=== PATIENT | male | born 1960 | race Caucasian/White ===

== ENCOUNTER 2020-04-11 08:51 | Outpatient (REF) | payer OTHER, SELFPAY ==
--- NOTE | 2020-04-11 09:16 | XR_ITS ---
EXAMINATION: XR FINGER, RIGHT CLINICAL INFORMATION: Pain COMPARISON: Right wrist x-ray April 2017 TECHNIQUE: Three views of the right thumb. FINDINGS: Bone alignment is normal. No fracture or dislocation is seen. There is a small osteophyte at the IP joint of the thumb. Joint spaces are otherwise normal. Soft tissues are normal. XR/XR finger RT min 2V IMPRESSION: Mild degenerative changes at the IP joint.
[2020-04-11 10:04] LABS: Hematocrit 46.1 % (42-52); Hemoglobin 15.3 g/dl (14.0-18.0); Mean Corpuscular HGB Conc 33.2 g/dl (31.0-36.0); Mean Corpuscular Hemoglobin 28.8 pg (27.0-33.0); Mean Corpuscular Volume 86.7 fL (80-98); Mean Platelet Volume 10.3 fL (9.4-12.4); Platelet Count 236 X10*3/uL (160-400); Red Blood Count 5.32 X10*6/uL (4.60-5.80); Red Cell Distribution Width 13.6 % (11.0-16.0); White Blood Count 4.8 X10*3/uL (4.8-10.8)
[2020-04-11 10:32] LABS: Alanine Aminotransferase 24 U/L (0-40); Albumin Level 4.2 g/dL (3.5-5.0); Alkaline Phosphatase 76 U/L (39-117); Anion Gap 12 (12-20); Aspartate Amino Transferase 24 U/L (5-37); Bilirubin Total 0.9 mg/dL (0.0-1.0); Blood Urea Nitrogen 12 mg/dL (9-16); Calcium 8.9 mg/dL (8.4-10.2); Carbon Dioxide 26 mmol/L (22-29); Chloride 104 mmol/L (96-108); Cholesterol 133 mg/dL; Estimated Glomerular Filt Rate > 60; Glucose Fasting 82 mg/dL (60-99); HDL Cholesterol 52 mg/dL; LDL Cholesterol Calculated 70 mg/dl; Potassium 4.8 mmol/l (3.3-5.1); Sodium 137 mmol/L (135-145); Total Protein 6.9 g/dL (6.5-8.0); Triglycerides 58 mg/dL
[2020-04-11 10:39] LABS: Glucose Urine UA NEG (NEG); Leukocyte Esterase Urine NEG (NEG); Nitrite Urine NEG (NEG); Specific Gravity - Urine 1.015 (1.005-1.025); Urine Blood NEG (NEG); Urine Ketones NEG (NEG); Urine Protein NEG (NEG-TRACE)
[2020-04-11 10:44] LABS: Appearance Urine CLEAR; Color Urine YELLOW
[2020-04-11 11:11] LABS: Erythrocyte Sedimentation Rate 3 MM/HR (0-15)
== END 2020-04-11 08:52 | disposition home or self-care (01) ==
LOC: HO.LAB 08:51
PROVIDERS: PCP Internal Medicine; Visit Provider Internal Medicine
DX: E78.5 Hyperlipidemia, unspecified (principal); M79.644 Pain in right finger(s); G25.81 Restless legs syndrome
CPT/HCPCS: 36415; 73140; 80053; 80061; 81003; 84443; 85027; 85652

== ENCOUNTER 2020-04-24 08:08 | Outpatient (REF) | payer OTHER, SELFPAY ==
[2020-04-24 08:27] LABS: COVID-19 Test Negative (Negative); IDNOW Serial# 55D5AD1C
== END 2020-04-24 08:09 | disposition home or self-care (01) ==
LOC: HO.EMPCOV 08:08
PROVIDERS: Visit Provider Internal Medicine
DX: Z20.828 Contact with and (suspected) exposure to other viral communicable diseases (principal)
CPT/HCPCS: 87635; C9803

== ENCOUNTER 2020-04-30 15:01 | Outpatient (REF) | payer OTHER, SELFPAY ==
[2020-04-30 15:18] LABS: COVID-19 Test Negative (Negative)
== END 2020-04-30 15:02 | disposition home or self-care (01) ==
LOC: HO.LAB 15:01
PROVIDERS: Visit Provider Internal Medicine
DX: Z20.828 Contact with and (suspected) exposure to other viral communicable diseases (principal)
CPT/HCPCS: 87635; C9803

== ENCOUNTER 2020-07-14 11:28 | Outpatient (REF) | payer OTHER, SELFPAY | END 2020-07-14 11:29 | disposition home or self-care (01) | LOC: HO.EMPCOV 11:28 | PROVIDERS: Visit Provider Internal Medicine | DX: Z20.822 Contact with and (suspected) exposure to COVID-19 (principal) | CPT/HCPCS: 36415; C9803; U0003; U0005 ==

== ENCOUNTER 2020-07-16 08:01 | Outpatient (REF) | payer OTHER, SELFPAY ==
[2020-07-16 08:20] LABS: COVID-19 Test Negative (Negative)
== END 2020-07-16 08:02 | disposition home or self-care (01) ==
LOC: HO.EMPCOV 08:01
PROVIDERS: Visit Provider Internal Medicine
DX: Z20.822 Contact with and (suspected) exposure to COVID-19 (principal)
CPT/HCPCS: 36415; 87635; C9803

== ENCOUNTER 2020-08-15 08:58 | Outpatient (REF) | payer OTHER, SELFPAY | END 2020-08-15 08:59 | disposition home or self-care (01) | LOC: HO.LAB 08:58 | PROVIDERS: PCP Internal Medicine; Visit Provider Internal Medicine | DX: Z13.89 Encounter for screening for other disorder (principal) ==

== ENCOUNTER 2020-08-15 09:03 | Day surgery (SDC) | payer OTHER, SELFPAY ==
[2020-08-11 13:59] VITALS: BMI 25.9
--- NOTE | 2020-08-14 10:29 | P.CONAN_ITS ---
Documented by User: Chantelle Stoddard 08/14/20 10:29 HPI - Anesthesia Eval Consult details Narrative: 59yo M for Colonoscopy [facility] Past Medical History Medical History (Updated 08/11/20 @ 14:01 by Candace Soliz) Elevated cholesterol HTN (hypertension) Hx of migraine headaches Surgical History Surgical History (Updated 08/11/20 @ 14:01 by Candace Soliz) H/O colonoscopy Hx of cholecystectomy Hx of laminectomy Social History Social History Smoking Status: Never smoker Advance Directives Information Provided: No Meds Allergies Allergy/AdvReac Type Severity Reaction Status Date / Time No Known Allergies Allergy Verified 08/11/20 14:03 [No Known Allergies*] Home Medications Medication Instructions Recorded Confirmed Last Taken Type atenolol 25 mg PO DAILY 08/11/20 08/11/20 08/15/20 07:00 History rosuvastatin 10 mg PO DAILY 08/11/20 08/11/20 Unknown History Exam Exam Date and Time: August 14, 2020 1029 Height,Weight and Vital Signs: Height 5 ft 7 in Weight 75.296 kg Assessment and Plan Assessment Anesthesia Assessment: Chart Reviewed Documented by User: Poncho Henson 08/15/20 10:10 [facility] Past Medical History Medical History (Updated 08/11/20 @ 14:01 by Candace Soliz) Elevated cholesterol HTN (hypertension) Hx of migraine headaches Surgical History Surgical History (Updated 08/11/20 @ 14:01 by Candace Soliz) H/O colonoscopy Hx of cholecystectomy Hx of laminectomy Social History Social History Smoking Status: Never smoker Advance Directives Information Provided: No Meds Allergies Allergy/AdvReac Type Severity Reaction Status Date / Time No Known Allergies Allergy Verified 08/11/20 14:03 [No Known Allergies*] Home Medications Medication Instructions Recorded Confirmed Last Taken Type atenolol 25 mg PO DAILY 08/11/20 08/11/20 08/15/20 07:00 History rosuvastatin 10 mg PO DAILY 08/11/20 08/11/20 Unknown History Exam Airway Mallampati Class: III TM Dist: >3cm Neck ROM: Full
[2020-08-15] VITALS (8 sets, daily range): BP systolic 75–112; BP diastolic 50–74; PULSE 58–72; RESP 14–18; TEMP 36.1–36.3; O2SAT 93–100
[2020-08-15 10:15] LABS: Basophils Percent Auto 0.6 % (0-2); Eosinophils Absolute Auto 0.2 X10*3/uL (0.0-0.4); Eosinophils Percent Auto 3.5 % (0-4); Hematocrit 47.2 % (42-52); Hemoglobin 15.8 g/dl (14.0-18.0); Imm Gran Abs Auto 0.01 X10*3/uL (0.00-0.03); Imm Gran Pct Auto 0.2 % (0.0-0.4); Lymphocytes Absolute Auto 1.8 X10*3/uL (1.2-4.9); MANUAL DIFF FLAG NO; Mean Corpuscular HGB Conc 33.5 g/dl (31.0-36.0); Mean Corpuscular Hemoglobin 29.6 pg (27.0-33.0); Mean Corpuscular Volume 88.4 fL (80-98); Mean Platelet Volume 9.9 fL (9.4-12.4); Monocytes Absolute Auto 0.3 X10*3/uL (0.1-1.2); Monocytes Percent Auto 7.1 % (2-11); Neutrophils Absolute Auto 2.4 X10*3/uL (2.0-8.3); Neutrophils Percent Auto 50.6 % (45-73); Platelet Count 228 X10*3/uL (160-400); Red Blood Count 5.34 X10*6/uL (4.60-5.80); Red Cell Distribution Width 13.5 % (11.0-16.0); White Blood Count 4.8 X10*3/uL (4.8-10.8)
[2020-08-15 10:20] LABS: Prothrombin Time 12.1 SEC (10.8-13.0)
[2020-08-15] MEDS: Lactated Ringers 1,000 ML 100 ML IVCONT (10:24)
[2020-08-15 10:47] LABS: Anion Gap 14 (12-20); Blood Urea Nitrogen 11 mg/dL (9-16); Calcium 8.8 mg/dL (8.4-10.2); Carbon Dioxide 25 mmol/L (22-29); Chloride 106 mmol/L (96-108); Cholesterol 141 mg/dL; Creatinine Clr Calc Pharmacy 70.5; Estimated Glomerular Filt Rate > 60; Glucose Fasting 84 mg/dL (60-99); HDL Cholesterol 45 mg/dL; LDL Cholesterol Calculated 77 mg/dl; Sodium 140 mmol/L (135-145); Triglycerides 96 mg/dL
--- NOTE | 2020-08-15 11:44 | PM.OP ---
Brief Operative Note Date of Service: 08/15/20 Pre-op diagnosis: Screening Post-op diagnosis: other (Colon polyp) Procedure: Colonoscopy to the cecum and TI with biopsy/removal of polyp Surgeon: Kevan Mahajan Anesthesia: MAC Estimated blood loss (mL): 3.0 Pathology: other (A. Transverse colon polyp) Condition: stable Disposition: PACU
--- NOTE | 2020-08-15 12:00 | OP_ITS ---
SURGEON: Kevan Mahajan MD INDICATIONS: The patient presents for evaluation of colorectal cancer screening and personal history of tubular adenoma of the colon. Full consent has been obtained from him for this, including risks of bleeding and perforation. PREOPERATIVE DIAGNOSIS: POSTOPERATIVE DIAGNOSIS: PROCEDURE PERFORMED: Colonoscopy to the cecum and terminal ileum with biopsy and removal of polyp. ESTIMATED BLOOD LOSS: COMPLICATIONS: ANESTHESIA: Monitored anesthesia care. ASSISTANTS: SPECIMENS: PREOPERATIVE DIAGNOSES: Colorectal cancer screening and personal history of tubular adenoma of the colon. POSTOPERATIVE DIAGNOSES: Colorectal cancer screening and personal history of tubular adenoma of the colon, small colon polyp, mild sigmoid diverticulosis, and small internal hemorrhoids. DESCRIPTION OF PROCEDURE: The patient was placed in the left lateral decubitus position. The digital rectal exam revealed no abnormalities. The Olympus video pediatric colonoscope was entered into the rectum and advanced easily to the cecum. Once in the cecum, I did identify normal-appearing cecal pouch with appendiceal orifice and a normal-appearing ileocecal valve. The terminal ileum was cannulated and appeared normal. The scope was withdrawn back in the colon. The entire cecum and ileocecal valve appeared normal. The scope was slowly withdrawn assessing all mucosal surfaces carefully. Preparation was excellent. At the region of the transverse colon, was a flat approximately 4 mm polyp, which was biopsied and completely removed with cold biopsy forceps. I did not visualize any other polyps, colitis, nor angiodysplasia. There was a mild amount of sigmoid diverticulosis. In the rectum, scope was retroflexed visualizing small internal hemorrhoids, but no other pathology. The rectal mucosa appeared normal. The scope was straightened out and withdrawn from the patient. He tolerated the procedure well and was returned to the recovery area in stable condition. IMPRESSION: 1. Small colon polyp, status post biopsy and removal. 2. Diverticulosis. 3. Internal hemorrhoids. PLAN: The results of the pathology will be checked. I would recommend a repeat colonoscopy in 5 years for further screening. He will otherwise see me on a p.r.n. basis. MD MARY Ferrer/PATSY / [id number]
== END 2020-08-15 13:35 | disposition home or self-care (01) ==
PROVIDERS: Internal Medicine; Visit Provider Internal Medicine
PROC: 0DJD8ZZ Inspection of Lower Intestinal Tract, Via Natural or Artificial Opening Endoscopic (ICD-10-PCS; CPT 45378; principal; 2020-08-15 10:00)
DX: Z12.11 Encounter for screening for malignant neoplasm of colon (principal); Z86.010 Personal history of colon polyps; D12.3 Benign neoplasm of transverse colon; K57.30 Diverticulosis of large intestine without perforation or abscess without bleeding; K64.8 Other hemorrhoids; K59.4 Anal spasm; I10 Essential (primary) hypertension; Z90.49 Acquired absence of other specified parts of digestive tract; Z79.899 Other long term (current) drug therapy
CPT/HCPCS: 45380; 36415; 80048; 80061; 84153; 85025; 85610; 88305

== ENCOUNTER 2021-03-28 07:38 | Outpatient (REF) | payer OTHER, SELFPAY ==
[2021-03-28 07:46] LABS: MANUAL DIFF FLAG NO
[2021-03-28 08:10] LABS: Basophils Percent Auto 0.6 % (0-2); Eosinophils Absolute Auto 0.3 X10*3/uL (0.0-0.4); Eosinophils Percent Auto 6.1 % (0-4); Hematocrit 47.3 % (42.0-52.0); Hemoglobin 15.5 g/dl (14.0-18.0); Imm Gran Abs Auto 0.01 X10*3/uL (0.00-0.03); Imm Gran Pct Auto 0.2 % (0.0-0.4); Lymphocytes Absolute Auto 2.5 X10*3/uL (1.2-4.9); Mean Corpuscular HGB Conc 32.8 g/dl (31.0-36.0); Mean Corpuscular Hemoglobin 29.2 pg (27.0-33.0); Mean Corpuscular Volume 89.2 fL (80.0-98.0); Mean Platelet Volume 9.8 fL (9.4-12.4); Monocytes Absolute Auto 0.4 X10*3/uL (0.1-1.2); Monocytes Percent Auto 7.3 % (2-11); Neutrophils Percent Auto 38.8 % (45-73); Platelet Count 236 X10*3/uL (160-400); Red Cell Distribution Width 13.3 % (11.0-16.0); White Blood Count 5.2 X10*3/uL (4.8-10.8)
[2021-03-28 08:15] LABS: Appearance Urine CLEAR; Color Urine YELLOW; Glucose Urine UA NEG (NEG); Leukocyte Esterase Urine NEG (NEG); Nitrite Urine NEG (NEG); Urine Blood NEG (NEG); Urine Ketones NEG (NEG); Urine Protein NEG (NEG-TRACE)
[2021-03-28 08:34] LABS: Alanine Aminotransferase 23 U/L (0-40); Albumin Level 4.2 g/dL (3.5-5.0); Alkaline Phosphatase 75 U/L (39-117); Anion Gap 8 (12-20); Aspartate Amino Transferase 22 U/L (5-37); Bilirubin Total 0.6 mg/dL (0.0-1.0); Blood Urea Nitrogen 13 mg/dL (9-16); Calcium 9.2 mg/dL (8.4-10.2); Carbon Dioxide 31 mmol/L (22-29); Chloride 104 mmol/L (96-108); Cholesterol 150 mg/dL; Estimated Glomerular Filt Rate > 60; Glucose Random 96 mg/dL (60-115); HDL Cholesterol 45 mg/dL; LDL Cholesterol Calculated 89 mg/dl; Potassium 4.6 mmol/L (3.3-5.1); Sodium 138 mmol/L (135-145); Total Protein 6.8 g/dL (6.5-8.0); Triglycerides 83 mg/dL
[2021-03-28 08:59] LABS: Prostate Specific Antigen 0.52 ng/mL (<0.05-4.0)
== END 2021-03-28 07:39 | disposition home or self-care (01) ==
LOC: HO.LAB 07:38
PROVIDERS: PCP Internal Medicine; Visit Provider Internal Medicine
DX: Z12.5 Encounter for screening for malignant neoplasm of prostate (principal); I25.10 Atherosclerotic heart disease of native coronary artery without angina pectoris
CPT/HCPCS: 36415; 80053; 80061; 81003; 84153; 85025

== ENCOUNTER 2021-09-25 07:55 | Outpatient (REF) | payer OTHER, SELFPAY ==
[2021-09-25 11:10] LABS: MANUAL DIFF FLAG NO
[2021-09-25 11:23] LABS: Appearance Urine CLEAR; Basophils Percent Auto 0.6 % (0-2); Color Urine YELLOW; Eosinophils Absolute Auto 0.2 X10*3/uL (0.0-0.4); Glucose Urine UA NEG (NEG); Hematocrit 44.5 % (42.0-52.0); Hemoglobin 14.5 g/dl (14.0-18.0); Imm Gran Abs Auto 0.01 X10*3/uL (0.00-0.03); Imm Gran Pct Auto 0.2 % (0.0-0.4); Leukocyte Esterase Urine NEG (NEG); Lymphocytes Absolute Auto 2.5 X10*3/uL (1.2-4.9); Lymphocytes Percent Auto 47.3 % (20-40); Mean Corpuscular HGB Conc 32.6 g/dl (31.0-36.0); Mean Corpuscular Hemoglobin 28.6 pg (27.0-33.0); Mean Corpuscular Volume 87.8 fL (80.0-98.0); Mean Platelet Volume 10.6 fL (9.4-12.4); Monocytes Absolute Auto 0.4 X10*3/uL (0.1-1.2); Monocytes Percent Auto 7.3 % (2-11); Neutrophils Absolute Auto 2.1 x10*3/uL (2.0-8.3); Neutrophils Percent Auto 40.6 % (45-73); Nitrite Urine NEG (NEG); Platelet Count 230 X10*3/uL (160-400); Red Blood Count 5.07 X10*6/uL (4.60-5.80); Red Cell Distribution Width 13.9 % (11.0-16.0); Specific Gravity - Urine 1.025 (1.005-1.025); Urine Blood NEG (NEG); Urine Ketones 5 MG/DL (NEG); Urine Protein NEG (NEG-TRACE); White Blood Count 5.2 X10*3/uL (4.8-10.8)
[2021-09-25 11:46] LABS: Alanine Aminotransferase 18 U/L (0-40); Albumin Level 4.1 g/dL (3.5-5.0); Alkaline Phosphatase 67 U/L (39-117); Anion Gap 12 (12-20); Aspartate Amino Transferase 21 U/L (5-37); Bilirubin Total 0.8 mg/dL (0.0-1.0); Blood Urea Nitrogen 13 mg/dL (9-16); Calcium 9.3 mg/dL (8.4-10.2); Carbon Dioxide 27 mmol/L (22-29); Chloride 104 mmol/L (96-108); Cholesterol 151 mg/dL; Estimated Glomerular Filt Rate > 60; Glucose Random 92 mg/dL (60-115); HDL Cholesterol 46 mg/dL; LDL Cholesterol Calculated 90 mg/dl; Potassium 5.2 mmol/L (3.3-5.1); Sodium 138 mmol/L (135-145); Total Protein 6.7 g/dL (6.5-8.0); Triglycerides 79 mg/dL
[2021-09-25 12:27] LABS: Erythrocyte Sedimentation Rate 4 MM/HR (0-15)
== END 2021-09-25 07:56 | disposition home or self-care (01) ==
LOC: HO.HMGCLDS 07:55
PROVIDERS: Visit Provider Internal Medicine
DX: G43.709 Chronic migraine without aura, not intractable, without status migrainosus (principal)
CPT/HCPCS: 36415; 80053; 80061; 81003; 85025; 85652

== ENCOUNTER 2021-10-07 14:16 | Outpatient (REF) | payer OTHER, SELFPAY ==
--- NOTE | ~2021-10-07 | XR_ITS ---
EXAMINATION: XR KNEE AP STANDING CLINICAL INFORMATION: Primary osteoarthritis of left knee COMPARISON: None TECHNIQUE: AP bilateral standing view of the knees was obtained. 2 views each knee FINDINGS: Bilateral AP knee standing: The medial and lateral compartment joint space is maintained normal bilaterally. No bony erosive changes seen. No soft tissue swelling. Left knee: There is mild suprapatellar joint effusion. The patellofemoral compartment joint space is maintained normal. There is minimal superior patellar spurring. No bony erosive changes. Right knee: There is minimal superior patellar spurring. There is mild suprapatellar joint effusion. No visible acute fracture, dislocation or subluxation seen. Patellofemoral joint space is normal. XR/XR knee standing BI IMPRESSION: Bilateral superior patellar spurring with mild suprapatellar joint effusion. No visible acute fracture or dislocation seen.
== END 2021-10-07 14:17 | disposition home or self-care (01) ==
LOC: HO.XRAY 14:16
PROVIDERS: PCP Internal Medicine; Visit Provider Internal Medicine
DX: M17.12 Unilateral primary osteoarthritis, left knee (principal)
CPT/HCPCS: 73565

== ENCOUNTER 2021-10-16 19:28 | Outpatient (REF) | payer OTHER, SELFPAY ==
--- NOTE | ~2021-10-16 | MR_ITS ---
EXAMINATION: MR PELVIS WITHOUT AND WITH CONTRAST CLINICAL INFORMATION: Right groin pain. COMPARISON: Pelvic MRI dated 08/16/2006. TECHNIQUE: Multisequence MR imaging of the pelvis was obtained before and after the IV administration of 7 mL Gadavist contrast on a high-field strength scanner. FINDINGS: BONE: Unremarkable. No stress reaction, fracture, or avascular necrosis. No marrow enhancement or evidence of acute osseous injury. No concerning lytic or blastic osseous lesion. MUSCLES/TENDONS: Mild bilateral gluteus minimus tendinosis. No measurable tendon tear. No enhancement or evidence of acute muscle injury. INTRAPELVIC STRUCTURES: Unremarkable. SOFT TISSUES: No abnormal soft tissue mass, fluid collection, or enhancement. MR/MR pelvis wo/w con IMPRESSION: 1. Mild bilateral gluteus minimus tendinosis. 2. Otherwise unremarkable examination.
== END 2021-10-16 19:29 | disposition home or self-care (01) ==
LOC: HO.MRI 19:28
PROVIDERS: Visit Provider Internal Medicine
DX: R10.2 Pelvic and perineal pain (principal)
CPT/HCPCS: 72197; A9585

== ENCOUNTER 2021-10-30 11:02 | Outpatient (REF) | payer OTHER, SELFPAY ==
--- NOTE | ~2021-10-30 | XR_ITS ---
EXAMINATION: XR FOOT, RIGHT CLINICAL INFORMATION: Pain. COMPARISON: Right foot 10/24/2019 TECHNIQUE: AP, lateral, and oblique views of the right foot. FINDINGS: The bones and soft tissues are normal. No fracture. Alignment is anatomic. Joint spaces are maintained. There is small calcaneal heel spur. XR/XR foot RT min 3V IMPRESSION: Small calcaneal heel spur. Otherwise unremarkable right foot. No major change from 10/24/2019
== END 2021-10-30 11:03 | disposition home or self-care (01) ==
LOC: HO.XRAY 11:02
PROVIDERS: Visit Provider Internal Medicine
DX: M79.671 Pain in right foot (principal)
CPT/HCPCS: 73630

== ENCOUNTER 2022-07-16 10:00 | Outpatient (RCR) | payer OTHER, SELFPAY | END 2022-09-30 13:20 | disposition home or self-care (01) | LOC: HO.PT 10:00 | PROVIDERS: PCP Internal Medicine; Visit Provider Internal Medicine | DX: M22.2X1 Patellofemoral disorders, right knee (principal); M22.2X2 Patellofemoral disorders, left knee | CPT/HCPCS: 97110; 97161 ==

== ENCOUNTER 2023-01-21 07:59 | Outpatient (REF) | payer OTHER, SELFPAY ==
[2023-01-21 11:27] LABS: MANUAL DIFF FLAG NO
[2023-01-21 11:41] LABS: Appearance Urine Clear; Color Urine Yellow; Glucose Urine UA Negative (Negative); Leukocyte Esterase Urine Negative (Negative); Nitrite Urine Negative (Negative); PH 5.5 (5.0-9.0); Urine Blood Negative (Negative); Urine Ketones Negative (Negative); Urine Protein Negative (Neg-Trace)
[2023-01-21 11:46] LABS: Basophils Percent Auto 0.6 % (0-2); Eosinophils Absolute Auto 0.3 X10*3/uL (0.0-0.4); Eosinophils Percent Auto 5.2 % (0-4); Hematocrit 46.3 % (42.0-52.0); Hemoglobin 15.5 g/dl (14.0-18.0); Imm Gran Abs Auto 0.01 X10*3/uL (0.00-0.03); Imm Gran Pct Auto 0.2 % (0.0-0.4); Lymphocytes Absolute Auto 2.2 X10*3/uL (1.2-4.9); Lymphocytes Percent Auto 42.7 % (20-40); Mean Corpuscular HGB Conc 33.5 g/dl (31.0-36.0); Mean Corpuscular Hemoglobin 29.3 pg (27.0-33.0); Mean Corpuscular Volume 87.5 fL (80.0-98.0); Mean Platelet Volume 10.3 fL (9.4-12.4); Monocytes Absolute Auto 0.4 X10*3/uL (0.1-1.2); Monocytes Percent Auto 8.3 % (2-11); Neutrophils Absolute Auto 2.2 x10*3/uL (2.0-8.3); Platelet Count 244 X10*3/uL (160-400); Red Blood Count 5.29 X10*6/uL (4.60-5.80); Red Cell Distribution Width 13.3 % (11.0-16.0)
[2023-01-21 12:13] LABS: Alanine Aminotransferase 21 U/L (0-40); Albumin Level 4.1 g/dL (3.5-5.0); Alkaline Phosphatase 78 U/L (39-117); Anion Gap 11 (12-20); Aspartate Amino Transferase 25 U/L (5-37); Bilirubin Total 0.6 mg/dL (0.0-1.0); Blood Urea Nitrogen 11 mg/dL (9-16); Calcium 9.8 mg/dL (8.4-10.2); Carbon Dioxide 25 mmol/L (22-29); Chloride 106 mmol/L (96-108); Cholesterol 122 mg/dL (<200); Estimated Glomerular Filt Rate > 60; Glucose Random 90 mg/dL (60-115); HDL Cholesterol 41 mg/dL (>40); Iron 96 mcg/dL (45-160); LDL Cholesterol Calculated 66 mg/dL (<100); Percent Iron Saturation 34 % (15-50); Potassium 4.4 mmol/L (3.3-5.1); Sodium 138 mmol/L (135-145); Total Iron Binding Capacity 279 mcg/dL (228-428); Total Protein 7.1 g/dL (6.5-8.0); Triglycerides 78 mg/dL (<150); Unsaturated Iron Binding 183 ug/dL
[2023-01-21 12:29] LABS: Erythrocyte Sedimentation Rate 7 MM/HR (0-15); Thyroid Stimulating Hormone 0.29 uIU/mL (0.32-4.0)
[2023-01-21 12:31] LABS: Vitamin B12 542 pg/mL (200-900)
[2023-01-25 17:24] LABS: Lyme Abs Screen <0.90 index
[2023-01-26 14:48] LABS: Anti Nuclear Antibody Screen NEGATIVE (NEGATIVE)
[2023-01-27 16:59] LABS: Testosterone, Free 78.7 pg/mL (35.0-155.0); Testosterone, Total 656 ng/dL (250-1100)
== END 2023-01-21 08:00 | disposition home or self-care (01) ==
LOC: HO.HMGCLDS 07:59
PROVIDERS: PCP Internal Medicine; Visit Provider Internal Medicine
DX: R53.83 Other fatigue (principal); E78.5 Hyperlipidemia, unspecified; I10 Essential (primary) hypertension; I25.10 Atherosclerotic heart disease of native coronary artery without angina pectoris; G43.709 Chronic migraine without aura, not intractable, without status migrainosus
CPT/HCPCS: 36415; 80053; 80061; 81003; 82306; 82607; 83540; 84402; 84403; 84443; 85025; 85652; 86038; 86617; 86618

== ENCOUNTER → 2023-03-25 08:04 | Outpatient (REF) | payer OTHER, SELFPAY ==
--- NOTE | 2023-03-25 08:10 | CA_ITS ---
Transthoracic Echocardiogram Patient (Last, First, Middle): Kacy Trinidad Zubair Gender: Male Date of : 1960 Age: 62 Procedure Date: 03/25/2023 Procedure Type: Transthoracic Echocardiogram Location: OP Height: 170.18 cm Weight: 74.84 kg BSA: 1.86 m2 Heart Rate: bpm BP: 110 / 62 mmHg Claims Service Representative: TO Referring MD: Louise Taylor COP[employer] PREPARER-C Symptoms: R06.02 - Shortness of breath Study Quality: Fair Conclusions: - Normal left ventricular size, thickness, systolic function, and wall motion. The visually estimated ejection fraction is between 55-60%. Diastolic function is normal for age. - Normal right ventricular cavity size and systolic function. - There is mild to moderate tricuspid valve regurgitation. Findings Left Ventricle Normal left ventricular size, thickness, systolic function, and wall motion. The visually estimated ejection fraction is between 55-60%. Diastolic function is normal for age. Right Ventricle Normal right ventricular cavity size and systolic function. Atria The left atrium is normal in size. The right atrium is normal in size. Aortic Valve Normal aortic valve structure and function. There is no aortic valve stenosis. There is no aortic valve regurgitation. Mitral Valve The mitral valve appears normal. There is trace mitral valve regurgitation. There is no mitral valve stenosis. Pulmonic Valve Normal pulmonic valve structure and function. There is trace pulmonic valve regurgitation. Tricuspid Valve Normal tricuspid valve structure. There is mild to moderate tricuspid valve regurgitation. Normal right atrial pressure. There is no evidence of pulmonary hypertension. Great Vessels All visible segments of the aorta are normal in size. The visualized portions of the pulmonary artery and branches are normal. Venous The inferior vena cava is normal in size and collapses greater than 50% with inspiration. Pericardium/Pleural There is no evidence of pericardial effusion. Prior Study Comparison No prior study available for comparison. Measurements 2D Linear Measurements IVSd: 0.79 0.6-0.9/0.6-1.0 cm LVIDd: 4.53 3.9-5.3/4.2-5.9 cm LVIDd Index: 2.44 2.4-3.2/2.2-3.1 cm/m2 LVIDs: 2.74 2.0-3.6 cm LVPWd: 0.76 0.7-1.1 cm LA Diam: 3.30 2.7-3.8/3.0-4.0 cm LAIDs Index: 1.77 1.5-2.3 cm/m2 LV Mass: 137.07 67-162/88-224 g LV Mass Index: 73.69 43-95/49-115 g/m2 LVOT Diam: 2.00 3.0+(-)1.3 cm 2D Systolic Function EF 4C: 60.70 >55% EF 2C: 58.50 >55% EF BiP: 58.70 >55% Mitral Valve MV Pk E: 0.64 MV PK A: 0.50 MV Decel Time: 162.00 E/A: 1.30 E'Lateral: 9.68 E'Medial: 6.20 E/E' Med: 10.40 E/E' Lat: 6.60 PHT: 47.00 MVA PHT: 4.68 Decel Mercer: 3.98 Aortic Valve AoV Pk Dm: 0.99 AoV Mn Dm: 0.73 AoV VTI: 0.22 AoV Pk Grad: 4.00 Aov Mn Grad: 2.00 IRENE Cont.VTI: 2.58 LVOT LVOT Pk Dm: 0.86 LVOT Mn Dm: 0.56 LVOT VTI: 0.18 LVOT Pk Grad: 3.00 LVOT Mn Grad: 1.00 LVOT Diam: 2.00 LVOT Area: 3.14 Diastolic Function MV Pk E: 0.64 MV Pk A: 0.50 E/A: 1.30 E'Medial: 6.20 E/E' Med: 10.40 E' Laterial: 9.68 E/E' Lat: 6.60 Right Ventricle TAPSE (mm): 22.30 TVS' Dm: 9.57 Tricuspid Valve TR Pk Dm: 2.19 TR Pk Grad: 19.00 RA Press: 3.00 RVSP: 22.00 Great Vessels Aorta Sinus of Valsalva: 3.13 2.0-3.[address] Ridge: 2.34 1.7-3.4 cm Ao Asc: 2.90 2.1-3.4 cm Updated in Other Vendor System with Status of Final Jhony Sánchez MD electronically signed on 03/26/2023 12:03:38 PM with status of Final
--- NOTE | 2023-03-25 08:10 | CA_ITS ---
Acquisition Time: 2023-03-25 09:09:02 Total Exercise Time: 00:10:37 Test Indications: SOB Medications: SEE H Protocol: TARIQ Max HR: 160 BPM 100% of Pred: 160 BPM Max BP: 138/048 mmHG Max Work Load: 12.5 METS Exercise stress test exrecise 10 min 37 sec of Tariq protocol achieving 100% MPHR, with mild SOB, no chest discomfort, without arrhythmias, with normotensive response to exercise, without EKG changes. Test reviewed with Dr. Sánchez. Referred By: Louise Taylor Overread By: Thuy Rodriguez
== END ==
LOC: HO.CARD 08:04
PROVIDERS: PCP Internal Medicine; Visit Provider Nurse Practitioner Family
DX: R06.02 Shortness of breath (principal)
CPT/HCPCS: 93017; 93306

== ENCOUNTER → 2023-03-25 08:10 | Outpatient (BNV) | payer OTHER, SELFPAY | PROVIDERS: PCP Internal Medicine; Visit Provider Nurse Practitioner | DX: I36.1 Nonrheumatic tricuspid (valve) insufficiency (principal) | CPT/HCPCS: 93016; 93018; 93306 ==

== ENCOUNTER 2024-03-02 06:58 | Outpatient (REF) | payer OTHER, SELFPAY ==
[2024-03-02 10:12] LABS: MANUAL DIFF FLAG NO
[2024-03-02 10:15] LABS: Appearance Urine Clear; Color Urine Yellow; Glucose Urine UA Negative (Negative); Leukocyte Esterase Urine Negative (Negative); Nitrite Urine Negative (Negative); PH 6.5 (5.0-9.0); Specific Gravity - Urine 1.015 (1.005-1.025); Urine Blood Negative (Negative); Urine Ketones Negative (Negative); Urine Protein Negative (Neg-Trace)
[2024-03-02 10:23] LABS: Basophils Percent Auto 0.8 % (0-2); Eosinophils Absolute Auto 0.2 X10*3/uL (0.0-0.4); Eosinophils Percent Auto 4.2 % (0-4); Hematocrit 45.1 % (42.0-52.0); Imm Gran Abs Auto 0.01 X10*3/uL (0.00-0.03); Imm Gran Pct Auto 0.2 % (0.0-0.4); Lymphocytes Absolute Auto 2.3 X10*3/uL (1.2-4.9); Lymphocytes Percent Auto 46.1 % (20-40); Mean Corpuscular HGB Conc 33.3 g/dl (31.0-36.0); Mean Corpuscular Hemoglobin 29.4 pg (27.0-33.0); Mean Corpuscular Volume 88.3 fL (80.0-98.0); Mean Platelet Volume 10.5 fL (9.4-12.4); Monocytes Absolute Auto 0.4 X10*3/uL (0.1-1.2); Neutrophils Absolute Auto 2.1 x10*3/uL (2.0-8.3); Neutrophils Percent Auto 41.7 % (45-73); Platelet Count 229 X10*3/uL (160-400); Red Blood Count 5.11 X10*6/uL (4.60-5.80); Red Cell Distribution Width 13.8 % (11.0-16.0)
[2024-03-02 10:50] LABS: Alanine Aminotransferase 19 U/L (0-40); Alkaline Phosphatase 67 U/L (39-117); Anion Gap 10 (12-20); Aspartate Amino Transferase 22 U/L (5-37); Bilirubin Total 0.9 mg/dL (0.0-1.0); Blood Urea Nitrogen 15 mg/dL (9-16); Calcium 9.3 mg/dL (8.4-10.2); Carbon Dioxide 29 mmol/L (22-29); Chloride 105 mmol/L (96-108); Cholesterol 166 mg/dL (<200); Estimated Glomerular Filt Rate > 60; Glucose Random 90 mg/dL (60-115); HDL Cholesterol 50 mg/dL (>40); LDL Cholesterol Calculated 101 mg/dL (<100); Potassium 4.9 mmol/L (3.3-5.1); Sodium 139 mmol/L (135-145); Total Protein 6.8 g/dL (6.5-8.0); Triglycerides 79 mg/dL (<150)
[2024-03-02 11:05] LABS: Prostate Specific Antigen 0.59 ng/mL (<0.05-4.0)
== END 2024-03-02 06:59 | disposition home or self-care (01) ==
LOC: HO.HMGCLDS 06:58
PROVIDERS: PCP Internal Medicine; Visit Provider Internal Medicine
DX: Z00.00 Encounter for general adult medical examination without abnormal findings (principal); Z12.5 Encounter for screening for malignant neoplasm of prostate
CPT/HCPCS: 36415; 80053; 80061; 81003; 84153; 85025

== ENCOUNTER 2024-11-30 12:41 | Outpatient (AMB) | payer OTHER, SELFPAY ==
--- NOTE | 2024-11-30 12:42 | MHC.PC.OV ---
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 Care Intake Note: patient here for new patient visit Commercial Energy Rater Required: No Allergies No Known Allergies (No Known Allergies*) Allergy (Verified 11/30/24 12:59) Medication List - Last Reconciled 11/30/24 by Kenny Cordoba CNP atenolol 50 mg PO DAILY celecoxib (Celebrex) 200 mg PO DAILY PRN clobetasol-niacinamide 0.05-4 % ea topical PRN dupilumab (Dupixent) 300 mg subcut Q4W eletriptan 40 mg PO Q2-4H PRN gabapentin 100 mg PO BEDTIME rosuvastatin 20 mg PO DAILY Tobacco use date assessed: 11/30/24 Dental Screening Dental Screen Date: 11/30/24 Did you have a dental visit in the last 12 months?: Yes Did you have a dental problem in the last 6 months where you did not have access to dental care?: No Was dental information given to patient?: Patient has dentist HPI HPI Comments History of Present Illness Details 64-year-old male presents [facility]. Prior PCP? - Dr. Campoverde Last office visit/CPE/labs - Last Fall Last Labs - [facility] [place]24: Unremarkable Acute issue(s) - None Past Medical History - Hypertension, hyperlipidemia, supclinical hyperthyroidism, migraines, RLS (on gababentin), eczema, myopia, hyperopia Surgical History - cholecystectomy, cervical laminectomy Family History - None Social History - Nonsmoker. Does not vape. Does not drink alcohol. Denies recreational drug use - Has been making healthy dietary choices. Exercises routinely. Generally sleep well Health maintenance - Last eye exam was [address] Araiza. Will request his ophthalmology record - Last dental visit was 6 months ago. He has a follow up clinic next week - Last tetanus unknown but likely within the past 10 years. He will obtain his immunization record - He notes that he is up-to-date on the shingrix and flu vaccines - Last colonoscopy was in 08/15/2020: tubular adenoma [facility] Medical History (Updated 11/30/24 @ 13:25 by Kenny Cordoba CNP) Eczema RLS (restless legs syndrome) H/O migraine History of hypertension Sinusitis Hx of migraine headaches Elevated cholesterol Surgical History (System 09/07/24 @ 14:52 by Kim Jimenez) Hx of laminectomy Hx of cholecystectomy H/O colonoscopy Family History (Updated 11/30/24 @ 13:02 by Venessa Saunders MA) Son FH: mental illness Mother High blood pressure Father High blood pressure Social History (System 09/07/24 @ 14:52 by Kim Jimenez) Housing: House Patient Tobacco Use Status: Never used Tobacco e-Cigarette/Vaping Use: Never Used Second Hand Smoke Exposure: No service: No Current occupational status: employed Current occupation: Doctor Current occupational exposures/hazards: No Cognitive needs: No Hearing needs: No Vision needs: Yes Questionnaire PHQ-9 Over the last 2 weeks, how often have you been bothered by any of the following problems? 1. Little interest or pleasure in doing things: not at all 2. Feeling down, depressed, or hopeless: not at all 3. Trouble falling or staying asleep, or sleeping too much: not at all 4. Feeling tired or having little energy: not at all 5. Poor appetite or overeating: not at all 6. Feeling bad about yourself - or that you are a failure or have let yourself or your family down: not at all 7. Trouble concentrating on things, such as reading the newspaper or watching television: not at all 8. Moving or speaking so slowly that other people could have noticed. Or the opposite - being so fidgety or restless that you have been moving around a lot more than usual: not at all 9. Thoughts that you would be better off or of hurting yourself in some way: not at all Total score: 0 Depression Screening Interpretation: Negative Depression Screening Done: Yes 80603 - PHQ-9 Billing: Yes Source: Developed by Drs. Kevan Fan, Tiara Negro, Ata Ramirez and colleagues, with an educational clark from [employer]. Thrive Questionnaire Date Thrive assessed: 11/30/24 I am a: Patient What is your living situation today?: I have a steady place to live Within the past 12 months, did the food you bought not last and you didn't have the money to get more?: Never true Within the past 12 months, did you worry whether your food would run out before you got money to buy more?: Never true Do you have trouble paying for medicines?: No Do you have trouble getting transportation to medical appointments?: No Do you have trouble paying your heating and electricity bill?: No Do you have trouble taking care of your child, family member or friend?: No Do you have trouble with day-to-day activities such as bathing, preparing meals, shopping, managing finances, etc.?: No Are you currently unemployed and looking for a job?: No Are you interested in more education?: No Please select the resources that you would like help with: None Currently or been in a relationship where the following occur: No concerns reported THRIVE Score: 0 AUDIT C Alcohol Use Questionnaire (AUDIT-C) 1. How often do you have a drink containing alcohol?: Never 3. How often do you have six or more drinks on one occasion?: Never Total Score: 0 Score Reviewed/Action Taken: Yes NOAH-7 AMB Questionnaire NOAH-7 Date NOAH - 7 assessed: 11/30/24 Feeling nervous, anxious, or on edge: 0 = Not at all Not being able to stop or control worryin = Not at all Worrying too much about different things: 0 = Not at all Trouble relaxin = Not at all Being so restless that it is hard to sit still: 0 = Not at all Becoming easily annoyed or irritable: 0 = Not at all Feeling afraid as if something awful might happen: 0 = Not at all Total NOAH-7 score (0-4 normal; 5-9 mild; 10-14 moderate; 15-21 severe): 0 Source: Developed by Drs. Kevan Fan, Tiara Negro, Ata Ramirez and colleagues, with an educational clark from [employer]. Review of Systems Const Details: Denies chills, Denies fatigue, Denies fever(s), Denies headache(s) and Denies weakness HEENT Denies change in vision, Denies dizziness, Denies headache(s), Denies hearing loss, Denies nasal congestion, Denies sinus pain, Denies sinus pressure and Denies sore throat Card Denies chest pain, Denies lightheadedness, Denies dyspnea and Denies other (palpitations) Resp Denies cough, Denies dyspnea and Denies wheezing GI Denies abdominal pain, Denies melena, Denies hematochezia, Denies change in bowel habits, Denies dyspepsia and Denies nausea Denies hematuria and Denies dysuria Musc Denies abnormal gait, Denies myalgias, Denies arthralgias, Denies numbness and Denies tingling Skin/Breast Denies rash, Denies unusual bruising and Denies wounds Neuro Denies abnormal gait, Denies dizziness, Denies headache(s), Denies memory loss, Denies numbness, Denies Sensory deficit (Neuro), Denies tingling and Denies weakness Psych Denies anxiety, Denies depression and Denies memory loss Endo Denies cold intolerance, Denies fatigue, Denies heat intolerance, Denies polydipsia and Denies polyuria Mariusz/Lymph Denies easy bleeding and Denies easy bruising Aller/Immun Denies wheezing Physical exam (Primary Care) Vital Signs: Last Vital Signs Temp 98.2 F 11/30/24 12:55 Pulse 59 11/30/24 12:55 Resp 16 11/30/24 12:55 BP 101/60 11/30/24 12:55 Pulse Ox 96 11/30/24 12:55 Oxygen Delivery Method Room Air 11/30/24 12:55 BMI result Body Mass Index 26.2 Tobacco/Smoking Status: Tobacco use Status Tobacco use date assessed 11/30/24 11/30/24 12:55 Patient Tobacco Use Status Never used Tobacco 11/30/24 12:55 e-Cigarette/Vaping Use Never Used 11/30/24 12:55 PHQ-9: PHQ-9 Score PHQ-9: Total score 0 11/30/24 13:02 Depression Screening Interpretation: Negative Thrive Assessment: Date of Thrive Assessment Date Thrive assessed 11/30/24 11/30/24 12:45 Currently or been in a relationship where the following occur: No concerns reported Const Other: General: no acute distress, well developed, alert and awake Nutritional Appearance: well nourished Orientation/consciousness: patient oriented x3 HENMT Head: Yes normocephalic and Yes atraumatic Ears: hearing grossly normal bilaterally and TM's normal bilaterally General nose exam: Normal external nose present and Normal nares present Mouth: Normal oral and palatal mucosa present and moist mucous membranes Teeth and gingiva: dentition normal Throat: Yes oropharynx normal Eyes Pupils: Equal, round and reactive pupils present and Pupil accommodation reflex normal EOM: EOMs intact bilaterally Neck Neck: Yes normal visual inspection, Yes no lymphadenopathy and Yes trachea midline Thyroid: Thyroid normal Carotids: no bruits Lymphatic: no lymphadenopathy noted Chest Chest palpation & inspection: normal inspection of the chest Resp Effort & Inspection: normal respiratory effort Auscultation: clear to auscultation bilaterally Cardio Rate: regular rate Rhythm: regular rhythm Heart sounds: S1 normal heart sound present, S2 normal heart sound present, no gallops, no murmurs and no rubs Bruits: no abdominal aortic bruits and no carotid bruits GI Palpation (GI): No Abdominal aortic bruit present, Soft to palpation, nontender, No hepatosplenomegaly present and No Rebound tenderness present Auscultation: normal bowel sounds General: Yes no CVA tenderness Back/Spine/Pelvis Back: no CVA tenderness Cervical Spine: cervical ROM normal and No Cervical spine tenderness Thoracic/Lumbar Spine: thoraco-lumbar ROM normal, No pain with thoraco-lumbar ROM, No thoracic spinal tenderness and No lumbar spinal tenderness Skin General: warm and dry. Normal skin color. Normal skin turgor Lesions: no lesions Rashes: no rashes Trauma: no lacerations or abrasions Wounds: no wounds Nails: normal Neuro General: patient oriented x3, gait normal and CN's II-XI intact bilaterally Cranial nerves: Yes Equal, round and reactive pupils present Cognition (Neuro): normal cognition Gait exam (Neuro): Normal gait present Motor exam (neuro): 5/5 motor strength present throughout Sensory Exam: No Sensory deficit (Neuro) Deep tendon reflexes (DTR's): Right patellar reflex intensity grade: 2+ and Left patellar reflex intensity grade: 2+ Extrem General: Yes normal to inspection, No edema and No calf tenderness Psych Appearance: grossly normal Affect: normal affect Attitude: cooperative Thought process: Normal thought process present Coding Level of Care Code New Pt New Pt Prev Care 40-64y(72147) Patient Type New Diagnoses Normal physical examination, routine Z00.00 Hypertension I10 Hyperlipidemia E78.5 Laboratory tests ordered as part of a complete physical exam (CPE) Z00.00 Additional Codes PHQ-9 - 32263 - PHQ-9 Billing: Yes ([id number]) Assessment & Plan Assessment & Plan (1) Normal physical examination, routine: Code(s): Z00.00 - Encounter for general adult medical examination without abnormal findings Category: Medical Plan: No significant physical limitations noted. Continue current treatment regimen. Healthy diet and routine exercise encouraged. Follow-up as planned. Verbalized understanding and agreed with the treatment plan (2) Hypertension: Code(s): I10 - Essential (primary) hypertension Category: Medical Plan: Blood pressure is 101/60, within goal of less than 140/90. Continue current treatment regimen. Low-sodium diet encouraged. Verbalized understanding and agreed with the plan (3) Hyperlipidemia: Code(s): E78.5 - Hyperlipidemia, unspecified Category: Medical Plan: Continue to take rosuvastatin as prescribed. Healthy diet and routine exercise encouraged. Routine exercise encouraged. Will check lipid panel level and make changes as needed. Verbalized understanding and agreed with the plan. (4) Laboratory tests ordered as part of a complete physical exam (CPE): Code(s): Z00.00 - Encounter for general adult medical examination without abnormal findings Category: Medical Plan: Fasting labs ordered as part of a complete physical exam. Advised to fast for at least 10 hours before getting labs drawn. May drink water Verbalized understanding and agreed with treatment plan. Orders: Orders Comprehensive [place]. Panel Fast Today Z00.00 - Encounter for general adult medical examination without abnormal findings Microalbumin, Random (w Creat) Today Z00.00 - Encounter for general adult medical examination without abnormal findings UA CC w/rflx Micro + Cult Today Z00.00 - Encounter for general adult medical examination without abnormal findings Complete Blood Count Auto Diff Today Z00.00 - Encounter for general adult medical examination without abnormal findings Lipid Panel Today Z00.00 - Encounter for general adult medical examination without abnormal findings PSA, Ultra Sensitive Today Z00.00 - Encounter for general adult medical examination without abnormal findings TSH reflex Free T4 Today Z00.00 - Encounter for general adult medical examination without abnormal findings Vitamin D 25-OH Total Today Z00.00 - Encounter for general adult medical examination without abnormal findings Medications: Discontinued amoxicillin-pot clavulanate 875-125 mg Discontinued Reason: Patient no longer taking 1 tab PO BID 14 days 28 tabs 0RF doxycycline hyclate Discontinued Reason: Patient no longer taking 100 mg PO BID 14 days 28 tabs 0RF
--- OUTSIDE RECORDS SUMMARY | 2024-11-30 12:44 | XMS_ITS | Patient Health Record ---
Author Organization [facility] Address [address] [place] [address] Care Team Providers Care Android Platform Developer Name Role Phone Zachary Campoverde Primary Care Provider Unavailabl e Black, Cynthia Unavailable [phone] Allergies Allergen (clinical drug ingredient) Drug/Non Drug Allergy documented on EMR Reaction Allergy Type Onset Date Status Latex Latex (uncoded) Rash Allergy Acti ve Reason For Referral No Information Social History Tobacco Use: Social History Observation Description Date Details (start date - stop date) Never Smoker NA - NA Tobacco Use/Smoking Question Answer Notes Are you a: nonsmoker Additional Findings: Tobacco Non-User Current no n-smoker Alcohol Screen Question Answer Notes Did you have a drink containing alcohol in the p ast year? No Points 0 Interpretation Negative Tobacco use other than smoking: Question Answer Notes Are you an other tobacco user? No Problems Problem Type SNOMED Code ICD Code Onset Dates Problem Status W/U Status Risk Notes Problem Pronation deformity of left foot (M21.6X2) Active confirmed Problem Pronation deformity of right foot (M21.6X1) Active confirmed Plan Of Treatment No Information Insurance Providers Payer Name Payer Address Payer Phone Subscriber Number Group Number Insured Name Patient Relationship to Insured Coverage Start Date Coverage End Date R [address] [address] [place] [address] [id number] [phone] Kacy Trinidad Self - patient is the insured Medical (General) History Medical History History ICD Code Back pain Knee Pain Migraines Surgical History Surgery Date(Month/Year)
--- OUTSIDE RECORDS SUMMARY | 2024-11-30 12:44 | XMS_ITS | Clinical Summary ---
Author Organization [facility] Address [address] [place] [address] Care Team Providers Care Dumping Machine Operator Name Role Phone Unavailable Primary Care Provider Unavailabl e Social History Tobacco Use Types Packs/Day Years Used Date Smoking Tobacco: Never Assessed Sex and Gender Information Value Date Recorded Sex Assigned at Not on file Gender Identity Not on file Sexual Orientation Not on file Plan of Treatment Health Maintenance Due Date Last Done Comments Hepatitis C Screening 1962 COVID-19 Vaccine (#1) 04/16/1963 Depression Screening 1974 Preventative Health Evaluation 1980 DTap / Tdap / Td (1 - Tdap) 1981 Colon Cancer Screening (Colonoscopy) 10/15/2007 Shingrix-Zoster Vaccine (1 of 2) 2012 Influenza Vaccine (#1) 2025 RSV Adult > 60+ Yrs or Pregn ant (1 - 1-dose 75+ series) 2037 Hepatitis B Vaccines Aged Out No long er eligible based on patient's age to complete this topic Pneumococcal Vaccine Aged Out No long er eligible based on patient's age to complete this topic RSV Ped < 20 months Aged Out No longe r eligible based on patient's age to complete this topic
--- OUTSIDE RECORDS SUMMARY | 2024-11-30 12:44 | XMS_ITS | Patient Health Record ---
Author Organization [facility] Address [address] [place] [address] Care Team Providers Care Director Of Pediatric Rehabilitation Name Role Phone Gilles WAGNER, [facility] Primary Care Provider Heidya Kevan Deleon [phone] Reason For Referral No Information Medications Medication SIG (Take, Route, Frequency, Duration) Notes Start Date End Date Status Hyoscyamine Sulfate 0.125 MG 1 or 2 Sublingual every 4-6 hrs prn rectal discomort for 30 days 08/01/2020 Active Atenolol 25 MG 5 ml Orally Once a day 08/01/2020 Active Rosuvastatin Calcium 10 MG 1 tablet Oral ly Once a day for 30 day(s) Active Immunizations Vaccine Route Administration Date Status Comme nts Influenza Unknown 01/22/2020 Administered Problems Problem Type SNOMED Code ICD Code Onset Dates Problem Status W/U Status Risk Notes Problem Screening for malignant neoplasm of colon (351465022) Encounter for screening for malignant neoplasm of colon (Z12.11) Active confirmed Problem History of adenomatous polyp of colon (905202325) History of adenomatous polyp of colon (Z86.010) Active confirmed Problem Preprocedural examination (143913185868855) Preprocedural examination (Z01.818) Active confirmed Problem Rectal pain (60497871) Rectal pain (K62.89) Active confirmed Problem 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 Plan Of Treatment Future Test Test Name Order Date COLONOSCOPY 03/29/2014 COLONOSCOPY 08/01/2020 Insurance Providers Payer Name Payer Address Payer Phone Subscriber Number Group Number Insured Name Patient Relationship to Insured Coverage Start Date Coverage End Date BLUE CLINICAL BIOSTATISTICIAN S CHAZ HERNANDEZ [address] [address] [place] [address] [id number] ANISH CLAIRED Self - patient is the insured Medical (General) History Medical History History ICD Code Denies [place],DM,CVA,Lung disease,renal dise ase Migraines HTN Hyperlipidemia Screening colonoscopy 05/2014 with 1 smal l tubular adenoma removed Surgical History Surgery Date(Month/Year) Cholecystectomy 1993 Laminectomy--Cervical spine 1993
[2024-11-30 12:55] VITALS: BP 101/60; PULSE 59; RESP 16; TEMP 36.8; O2SAT 96; BMI 26.2
== END 2024-11-30 13:27 | disposition home or self-care (01) ==
LOC: HO.HMCFM 12:42
PROVIDERS: PCP Nurse Practitioner Family; Visit Provider Nurse Practitioner Family
DX: Z00.00 Encounter for general adult medical examination without abnormal findings (principal); I10 Essential (primary) hypertension; E78.5 Hyperlipidemia, unspecified

== ENCOUNTER → 2024-11-30 12:41 | Outpatient (BNVA) | payer OTHER, SELFPAY | PROVIDERS: PCP Nurse Practitioner Family; Visit Provider Nurse Practitioner Family | DX: Z00.00 Encounter for general adult medical examination without abnormal findings (principal); I10 Essential (primary) hypertension; E78.5 Hyperlipidemia, unspecified | CPT/HCPCS: 96127 ==

== ENCOUNTER 2024-12-07 08:06 | Outpatient (REF) | payer OTHER, SELFPAY ==
--- OUTSIDE RECORDS SUMMARY | 2024-12-07 08:09 | XMS_ITS | Patient Health Record ---
Author Organization [facility] Address [address] [place] [address] Care Team Providers Care Press Room Supervisor Name Role Phone Zachary Campoverde Primary Care Provider Unavailabl e Black, Cynthia Unavailable [phone] Allergies Allergen (clinical drug ingredient) Drug/Non Drug [...] Date Coverage End Date R [address] [address] [place] [address] [id number] [phone] Kacy Trinidad Self - patient is the insured Medical (General) History Medical History History ICD Code Back pain Knee Pain Migraines Surgical History Surgery Date(Month/Year)
--- OUTSIDE RECORDS SUMMARY | 2024-12-07 08:09 | XMS_ITS | Patient Health Record ---
Author Organization [facility] Address [address] [place] [address] Care Team Providers Care Cook Ship Name Role Phone Gilles WAGNER, [facility] Primary Care Provider Heidya Kevan Deleon [phone] Reason For Referral No Information Medications Medication [...] Problem Screening for malignant neoplasm of colon (048873237) Encounter for screening for malignant neoplasm of colon (Z12.11) Active confirmed Problem History of adenomatous polyp of colon (460158589) History of adenomatous polyp of colon (Z86.010) Active confirmed Problem Preprocedural examination (433416814072554) Preprocedural examination (Z01.818) Active confirmed Problem Rectal pain (04432464) Rectal pain (K62.89) Active confirmed Problem Proctalgia fugax (25479917) 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 Plan Of Treatment Future Test Test Name Order Date COLONOSCOPY 03/29/2014 COLONOSCOPY 08/01/2020 Insurance Providers Payer Name Payer Address Payer Phone Subscriber Number Group Number Insured Name Patient Relationship to Insured Coverage Start Date Coverage End Date BLUE WASTE OIL PUMPER S CHAZ HERNANDEZ [address] [address] [place] [address] [id number] ANISH CLAIRED Self - patient is the insured Medical (General) History Medical History History ICD Code Denies [place],DM,CVA,Lung disease,renal dise ase Migraines HTN Hyperlipidemia Screening colonoscopy 05/2014 with 1 smal l tubular adenoma removed Surgical History Surgery Date(Month/Year) Cholecystectomy 1993 Laminectomy--Cervical spine 1993
--- OUTSIDE RECORDS SUMMARY | 2024-12-07 08:09 | XMS_ITS | Clinical Summary ---
Author Organization [facility] [employer] [facility] Address [address] [place] [address] Care Team Providers Care Assistant Sales Center Manager Name Role Phone Unavailable Primary Care Provider [...]
[2024-12-07 10:05] LABS: MANUAL DIFF FLAG NO
[2024-12-07 10:09] LABS: Appearance Urine Clear; Glucose Urine UA Negative (Negative); PH 6.5 (5.0-9.0); Specific Gravity - Urine <= 1.005 (1.005-1.025)
[2024-12-07 10:31] LABS: Hematocrit 46.3 % (42.0-52.0); Hemoglobin 15.4 g/dl (14.0-18.0); Imm Gran Abs Auto 0.01 X10*3/uL (0.00-0.03); Imm Gran Pct Auto 0.3 % (0.0-0.4); Lymphocytes Absolute Auto 1.7 X10*3/uL (1.2-4.9); Mean Corpuscular HGB Conc 33.3 g/dl (31.0-36.0); Mean Corpuscular Hemoglobin 29.1 pg (27.0-33.0); Mean Corpuscular Volume 87.5 fL (80.0-98.0); NRBC Abs Auto 0.000 X10*3/uL (0.0-0.012); NRBC Pct Auto 0.0 /100WBC (0.0-0.2); Platelet Count 216 X10*3/uL (160-400); Red Blood Count 5.29 X10*6/uL (4.60-5.80); White Blood Count 4.0 X10*3/uL (4.8-10.8)
[2024-12-07 10:51] LABS: Alanine Aminotransferase 24 U/L (0-40); Albumin Level 4.4 g/dL (3.5-5.0); Alkaline Phosphatase 74 U/L (39-117); Anion Gap 10 (12-20); Aspartate Amino Transferase 32 U/L (5-37); Blood Urea Nitrogen 14 mg/dL (9-16); Calcium 9.1 mg/dL (8.4-10.2); Carbon Dioxide 29 mmol/L (22-29); Chloride 104 mmol/L (96-108); Cholesterol 127 mg/dL (<200); Estimated Glomerular Filt Rate > 60; HDL Cholesterol 45 mg/dL (>40); Potassium 4.4 mmol/L (3.3-5.1); Sodium 139 mmol/L (135-145); Total Protein 7.3 g/dL (6.5-8.0); Triglycerides 77 mg/dL (<150)
[2024-12-07 11:43] LABS: Free T4 (Free Thyroxine) 1.02 ng/dL (0.71-1.85)
[2024-12-13 23:33] LABS: PSA, Ultra Sensitive 0.52 ng/mL
== END 2024-12-07 08:07 | disposition home or self-care (01) ==
LOC: HO.HMGCLDS 08:06
PROVIDERS: PCP Nurse Practitioner Family; Visit Provider Nurse Practitioner Family
DX: Z00.00 Encounter for general adult medical examination without abnormal findings (principal); Z12.5 Encounter for screening for malignant neoplasm of prostate
CPT/HCPCS: 36415; 80053; 80061; 81003; 82043; 82306; 82570; 84153; 84439; 84443; 85025

== ENCOUNTER 2024-12-28 10:39 | Outpatient (AMB) | payer OTHER, SELFPAY ==
--- NOTE | 2024-12-28 10:34 | A.OFFPC_ITS ---
Intake Visit Reasons: Telehealth 2-4 wks labs review Intake Note: Kacy presents by telephone today to go over his most recent lab results. Allergies No Known Allergies (No Known Allergies*) Allergy (Verified 12/28/24 10:35) Tobacco use date assessed: 12/28/24 Dental Screening Dental Screen Date: 12/28/24 Did you have a dental visit in the last 12 months?: Yes Did you have a dental problem in the last 6 months where you did not have access to dental care?: No Was dental information given to patient?: Patient has dentist HPI HPI Comments History of Present Illness Details 64-year-old male presents for a telewilson health visit for review of recent lab results. He admits to taking his medications as prescribed without adverse reactions. He reports intermittent dizziness/lightheadedness and low energy. He monitors his blood pressure regularly. His systolic blood pressure is usually between 90-100 when he is experiencing dizziness/lightheadedness or low energy. He wants to lower his atenolol to 25 mg daily. He requests for rosuvastatin to be decreased to 10 mg daily. [facility] Medical History (Updated 11/30/24 @ 13:25 by Kenny Cordoba CNP) Eczema RLS (restless legs syndrome) H/O migraine History of hypertension Sinusitis Hx of migraine headaches Elevated cholesterol Surgical History (System 09/07/24 @ 14:52 by Kim Jimenez) Hx of laminectomy Hx of cholecystectomy H/O colonoscopy Family History Son FH: mental illness Mother High blood pressure Father High blood pressure Social History (Updated 12/28/24 @ 10:36 by Mahnaz Mortensen MA) Housing: House Alcohol intake: current Alcohol intake frequency: does not drink Patient Tobacco Use Status: Never used Tobacco e-Cigarette/Vaping Use: Never Used Second Hand Smoke Exposure: No service: No Current occupational status: employed Current occupation: Doctor Current occupational exposures/hazards: No Cognitive needs: No Hearing needs: No Vision needs: Yes Questionnaire Thrive Questionnaire Date Thrive assessed: 11/30/24 NOAH-7 AMB Questionnaire NOAH-7 Date NOAH - 7 assessed: 11/30/24 Source: Developed by Drs. Kevan Fan, Tiara Negro, Ata Ramirez and colleagues, with an educational clark from [employer]. Review of Systems Const Details: Denies chills, Denies fatigue, Denies fever(s), Denies headache(s) and Denies weakness Cardiac Denies chest pain, Denies claudication, Denies leg edema, Denies lightheadedness, Denies palpitations, Denies dyspnea, Denies dyspnea on exertion, Denies orthopnea and Denies other (Loss of consciousness) Resp Denies cough, Denies excessive phlegm production, Denies dyspnea, Denies dyspnea on exertion, Denies snoring and Denies wheezing Physical exam (Primary Care) Tobacco/Smoking Status: Tobacco use Status Tobacco use date assessed 12/28/24 12/28/24 10:37 Patient Tobacco Use Status Never used Tobacco 12/28/24 10:37 e-Cigarette/Vaping Use Never Used 12/28/24 10:37 Thrive Assessment: Date of Thrive Assessment Date Thrive assessed 11/30/24 12/28/24 10:37 Const Other: Patient is alert and oriented x3 Telehealth Telehealth Telehealth Platform: Telephone Location of provider rendering services: practice address Location of patient: address on file Patient Identification confirmed using: Name, : Yes Telehealth method: voice only Patient verbally consented to treatment: Yes Patient verbally consented to billing insurance company: Yes Patient informed of any privacy concerns related to visit: Yes Coding Level of Care Code Tele New Pt Level 3 (72118) Diagnoses Hypertension I10 Hyperlipidemia E78.5 Time Spent (min) 10 Assessment & Plan Assessment & Plan (1) Hypertension: Code(s): I10 - Essential (primary) hypertension Category: Medical Plan: He reports intermittent dizziness/lightheadedness and low energy. He monitors his blood pressure regularly. His systolic blood pressure is usually between 90-100 when he is experiencing dizziness/lightheadedness or low energy. He wants to lower his atenolol to 25 mg daily. Amlodipine decreased to 25 mg daily; advised to take as prescribed. Continue to monitor blood pressure and notify PCP with low or elevated readings. Advised to schedule an annual physical exam for next year. Return sooner with symptoms or concerns. Verbalized understanding and agreed with the plan. (2) Hyperlipidemia: Code(s): E78.5 - Hyperlipidemia, unspecified Category: Medical Plan: He requests for rosuvastatin to be decreased to 10 mg daily. Recent lipid panel level normal. Rosuvastatin decreased to 10 mg daily; advised to take as prescribed. Fast for 10-12 hours, may drink water, and performed lipid panel blood work in 3 months. Will review results and make changes as needed. Verbalized understanding and agreed with the plan. Orders: Orders Lipid Panel 3 Months E78.5 - Hyperlipidemia, unspecified Medications: New atenolol 25 mg PO DAILY 90 tabs 3RF 90 days rosuvastatin 10 mg PO DAILY 90 tabs 3RF 90 days
--- OUTSIDE RECORDS SUMMARY | 2024-12-28 10:41 | XMS_ITS | Patient Health Record ---
Author Organization [facility] [place] Address [address] [place] [address] Care Team Providers Care Pool Coordinator Name Role Phone Zachary Campoverde Primary Care Provider Unavailabl e Black, Cynthia Unavailable [phone] Allergies Allergen (clinical drug ingredient) Drug/Non Drug [...] Date Coverage End Date R [address] [address] [place] [address] [id number] [phone] Kacy Trinidad Self - patient is the insured Medical (General) History Medical History History ICD Code Back pain Knee Pain Migraines Surgical History Surgery Date(Month/Year)
--- OUTSIDE RECORDS SUMMARY | 2024-12-28 10:41 | XMS_ITS | Patient Health Record ---
Author Organization [facility] Address [address] [place] [address] Care Team Providers Care Senior Qa Tester Name Role Phone Gilles WAGNER, [facility] Primary Care Provider Heidya Kevan Deleon [phone] Reason For Referral No Information Medications Medication [...] Problem Screening for malignant neoplasm of colon (404796924) Encounter for screening for malignant neoplasm of colon (Z12.11) Active confirmed Problem History of adenomatous polyp of colon (510514031) History of adenomatous polyp of colon (Z86.010) Active confirmed Problem Preprocedural examination (997966848788330) Preprocedural examination (Z01.818) Active confirmed Problem Rectal pain (K62.89) Active confirmed Problem Proctalgia fugax (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) 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 Plan Of Treatment Future Test Test Name Order Date COLONOSCOPY 03/29/2014 COLONOSCOPY 08/01/2020 Insurance Providers Payer Name Payer Address Payer Phone Subscriber Number Group Number Insured Name Patient Relationship to Insured Coverage Start Date Coverage End Date 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
--- OUTSIDE RECORDS SUMMARY | 2024-12-28 10:41 | XMS_ITS | Clinical Summary ---
Author Organization [facility] Address [address] [place] [address] Care Team Providers Care Survey Crew Chief Name Role Phone Unavailable Primary Care Provider [...]
== END 2024-12-28 12:31 | disposition home or self-care (01) ==
LOC: HO.HMCFM 10:39
PROVIDERS: PCP Nurse Practitioner Family; Visit Provider Nurse Practitioner Family
DX: I10 Essential (primary) hypertension (principal); E78.5 Hyperlipidemia, unspecified

== ENCOUNTER → 2024-12-28 10:39 | Outpatient (BNVA) | payer OTHER, SELFPAY | PROVIDERS: PCP Nurse Practitioner Family; Visit Provider Nurse Practitioner Family | DX: I10 Essential (primary) hypertension (principal); E78.5 Hyperlipidemia, unspecified | CPT/HCPCS: 98966 ==

== ENCOUNTER 2025-03-08 08:37 | Outpatient (REF) | payer OTHER, SELFPAY ==
--- OUTSIDE RECORDS SUMMARY | 2025-03-08 09:02 | XMS_ITS | Clinical Summary ---
Author Organization [facility] [employer] [facility] Address [address] [place] [address] Care Team Providers Care Centrifugal Separator Name Role Phone Unavailable Primary Care Provider [...]
--- OUTSIDE RECORDS SUMMARY | 2025-03-08 09:02 | XMS_ITS | Patient Health Record ---
Author Organization [facility] Address [address] [place] [address] Care Team Providers Care Financial Systems Administrator Name Role Phone Gilles WAGNER, [facility] Primary Care Provider Heidya Kevan Deleon [phone] Reason For Referral No Information Medications Medication SIG (Take, Route, Frequency, Duration) Notes Start Date End Date Status Hyoscyamine Sulfate 0.125 MG 1 or 2 Sublingual every 4-6 hrs prn rectal discomort; Duration: 30 days 08/01/2020 Active Atenolol 25 MG 5 ml Orally Once a day 08/01/2020 Active Rosuvastatin Calcium 10 MG 1 tablet Oral ly Once a day; Duration: 30 day(s) Active Immunizations Vaccine Route Administration Date Status Comme nts Influenza Unknown 01/22/2020 Administered Problems Problem Type SNOMED Code ICD Code Onset Dates Problem Status W/U Status Risk Notes Problem Screening for malignant neoplasm of colon (128266829) Encounter for screening for malignant neoplasm of colon (Z12.11) Active confirmed Problem History of adenomatous polyp of colon (185415554) History of adenomatous polyp of colon (Z86.010) Active confirmed Problem Preprocedural examination (531386661989376) Preprocedural examination (Z01.818) Active confirmed Problem Rectal pain (24177026) Rectal pain (K62.89) Active confirmed Problem Proctalgia fugax (95130035) 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 Plan Of Treatment Future Test Test Name Order Date COLONOSCOPY 03/29/2014 COLONOSCOPY 08/01/2020 Insurance Providers Payer Name Payer Address Payer Phone Subscriber Number Group Number Insured Name Patient Relationship to Insured Coverage Start Date Coverage End Date BLUE SU[employer] S OF [employer] [address] [address] [place] [address] [id number] 2 ALETHEARENAGARCIA Self - patient is the insured Medical (General) History Medical History History ICD Code Denies [place],DM,CVA,Lung disease,renal dise ase Migraines HTN Hyperlipidemia Screening colonoscopy 05/2014 with 1 smal l tubular adenoma removed Surgical History Surgery Date(Month/Year) Cholecystectomy 1993 Laminectomy--Cervical spine 1994
--- OUTSIDE RECORDS SUMMARY | 2025-03-08 09:02 | XMS_ITS | Patient Health Record ---
Author Organization [facility] Address [address] [place] [address] Care Team Providers Care Senior Teradata Developer Name Role Phone Zachary Campoverde Primary Care Provider Unavailabl e Black, Cynthia Unavailable [phone] Allergies Allergen (clinical drug ingredient) Drug/Non Drug [...] Date Coverage End Date R [address] [address] [place] [address] [id number] [phone] Kacy Trinidad Self - patient is the insured Medical (General) History Medical History History ICD Code Back pain Knee Pain Migraines Surgical History Surgery Date(Month/Year)
[2025-03-08 14:04] LABS: Cholesterol 150 mg/dL (<200); HDL Cholesterol 51 mg/dL (>40); Triglycerides 92 mg/dL (<150)
== END 2025-03-08 08:38 | disposition home or self-care (01) ==
LOC: HO.HMGCLDS 08:37
PROVIDERS: PCP Nurse Practitioner Family; Visit Provider Nurse Practitioner Family
DX: E78.5 Hyperlipidemia, unspecified (principal)
CPT/HCPCS: 36415; 80061

== ENCOUNTER 2025-04-05 08:41 | Outpatient (AMB) | payer OTHER, SELFPAY ==
--- NOTE | 2025-04-05 08:43 | MHC.PC.OV ---
Vital Signs 04/05/25 08:47 Height 5 ft 7 in Weight 170 lb 8 oz BMI 26.7 BP 102/67 Blood Pressure Location Lt brachial Position Sitting Respiration 16 Pulse 63 Pulse Source Pulse Oximeter Temp 97.4 F Temp Source Oral Pulse Oximetry (%) 98 Oxygen Delivery Method Room Air Intake Visit Reasons: Med Management f/u Intake Note: patient here for follow up Med Management Consumer Education Specialist Required: No Allergies No Known Allergies (No Known Allergies*) Allergy (Verified 04/05/25 09:01) Medication List - Last Reconciled 04/05/25 by Kenny Cordoba CNP atenolol 25 mg PO DAILY 90 days celecoxib (Celebrex) 200 mg PO DAILY PRN clobetasol-niacinamide 0.05-4 % ea topical PRN dupilumab (Dupixent) 300 mg subcut Q4W eletriptan 40 mg PO Q2-4H PRN gabapentin 100 mg PO BEDTIME rosuvastatin 10 mg PO DAILY 90 days Tobacco use date assessed: 04/05/25 Dental Screening Dental Screen Date: 04/05/25 Did you have a dental visit in the last 12 months?: Yes Did you have a dental problem in the last 6 months where you did not have access to dental care?: No Was dental information given to patient?: Patient has dentist HPI HPI Comments History of Present Illness Details 64-year-old male presents for HLD and HTN follow up. He admits to taking his medications as prescribed without adverse reactions. No acute symptoms at this time. [facility] Medical History (Updated 11/30/24 @ 13:25 by Kenny Cordoba CNP) Eczema RLS (restless legs syndrome) H/O migraine History of hypertension Sinusitis Hx of migraine headaches Elevated cholesterol Surgical History (System 09/07/24 @ 14:52 by Kim Jimenez) Hx of laminectomy Hx of cholecystectomy H/O colonoscopy Family History Son FH: mental illness Mother High blood pressure Father High blood pressure Social History (Updated 12/28/24 @ 10:36 by Mahnaz Mortensen MA) Housing: House Alcohol intake: current Alcohol intake frequency: does not drink Patient Tobacco Use Status: Never used Tobacco e-Cigarette/Vaping Use: Never Used Second Hand Smoke Exposure: No service: No Current occupational status: employed Current occupation: Doctor Current occupational exposures/hazards: No Cognitive needs: No Hearing needs: No Vision needs: Yes Questionnaire Thrive Questionnaire Date Thrive assessed: 11/30/24 I am a: Patient What is your living situation today?: I have a steady place to live Within the past 12 months, did the food you bought not last and you didn't have the money to get more?: Never true Within the past 12 months, did you worry whether your food would run out before you got money to buy more?: Never true Do you have trouble paying for medicines?: No Do you have trouble getting transportation to medical appointments?: No Do you have trouble paying your heating and electricity bill?: No Do you have trouble taking care of your child, family member or friend?: No Do you have trouble with day-to-day activities such as bathing, preparing meals, shopping, managing finances, etc.?: No Are you currently unemployed and looking for a job?: No Are you interested in more education?: No Please select the resources that you would like help with: None Currently or been in a relationship where the following occur: No concerns reported THRIVE Score: 0 NOAH-7 AMB Questionnaire NOAH-7 Date NOAH - 7 assessed: 11/30/24 Source: Developed by Drs. Kevan Fan, Tiara Negro, Ata Ramirez and colleagues, with an educational clark from [employer]. Review of Systems Const Details: Const Denies chills, Denies fatigue, Denies fever(s), Denies headache(s) and Denies weakness ENT Denies dizziness and Denies headache(s) Card Denies chest pain, Denies lightheadedness, Denies dyspnea and Denies other (Palpitations) Resp Denies cough, Denies dyspnea, Denies wheezing and Denies other ( shortness of breath) GI Denies abdominal pain, Denies melena, Denies hematochezia, Denies change in bowel habits, Denies dyspepsia and Denies nausea Denies hematuria and Denies dysuria Musc Denies abnormal gait, Denies myalgias, Denies arthralgias, Denies numbness and Denies tingling Skin/Breast Denies rash, Denies unusual bruising and Denies wounds Neuro Denies abnormal gait, Denies dizziness, Denies headache(s), Denies memory loss, Denies numbness, Denies Sensory deficit (Neuro), Denies tingling and Denies weakness Psych Denies anxiety, Denies depression, Denies memory loss Endo Denies cold intolerance, Denies fatigue, Denies heat intolerance, Denies polydipsia and Denies polyuria Aller/Immun Denies wheezing Physical exam (Primary Care) Vital Signs: Last Vital Signs Temp 97.4 F 04/05/25 08:47 Pulse 63 04/05/25 08:47 Resp 16 04/05/25 08:47 BP 102/67 04/05/25 08:47 Pulse Ox 98 04/05/25 08:47 Oxygen Delivery Method Room Air 04/05/25 08:47 BMI result Body Mass Index 26.7 Tobacco/Smoking Status: Tobacco use Status Tobacco use date assessed 04/05/25 04/05/25 08:50 Patient Tobacco Use Status Never used Tobacco 04/05/25 08:45 e-Cigarette/Vaping Use Never Used 04/05/25 08:45 Thrive Assessment: Date of Thrive Assessment Date Thrive assessed 11/30/24 04/05/25 08:45 Currently or been in a relationship where the following occur: No concerns reported Const Other: General: no acute distress and well developed Nutritional Appearance: well nourished Orientation/consciousness: patient oriented x3 HENMT Head: Yes normocephalic and Yes atraumatic Eyes General: appearance normal, both eyes and all related structures Pupils: Equal, round and reactive pupils present EOM: EOMs intact bilaterally Resp Effort & Inspection: normal respiratory effort Auscultation: clear to auscultation bilaterally Cardio Rate: regular rate Rhythm: regular rhythm Heart sounds: S1 normal heart sound present, S2 normal heart sound present, no gallops, no murmurs and no rubs Extrem General: Yes normal to inspection, No edema and No calf tenderness Skin General: warm and dry. Normal skin color. Normal skin turgor Neuro General: patient oriented x3, gait normal and no focal neuro deficit Cranial nerves: Yes Equal, round and reactive pupils present Cognition (Neuro): normal cognition Gait exam (Neuro): Normal gait present Sensory Exam: No Sensory deficit (Neuro) Psych Appearance: grossly normal Affect: normal affect Attitude: cooperative Thought process: Normal thought process present Coding Level of Care Code Est Pt Level 3 (63644) Diagnoses Hypertension I10 Hyperlipidemia E78.5 Assessment & Plan Assessment & Plan (1) Hypertension: Code(s): I10 - Essential (primary) hypertension Category: Medical Plan: Blood pressure today is normal. Continue current treatment regimen. Follow-up for transfer of care with a new PCP. Verbalized understanding and agreed with the plan. (2) Hyperlipidemia: Code(s): E78.5 - Hyperlipidemia, unspecified Category: Medical Plan: Recent lipid panel level is normal. Continue current treatment regimen. Follow-up as planned. Verbalized understanding and agreed with the plan. Medications: New eletriptan do not exceed 2 doses per 24 hrs 40 mg PO Q2-4H PRN 20 tabs 3RF migraine headache
[2025-04-05 08:47] VITALS: BP 102/67; PULSE 63; RESP 16; TEMP 36.3; O2SAT 98; BMI 26.7
--- OUTSIDE RECORDS SUMMARY | 2025-04-05 08:57 | XMS_ITS | Clinical Summary ---
Author Organization [facility] Address [address] [place] [address] Care Team Providers Care Health Unit Supervisor Name Role Phone Unavailable Primary Care Provider [...]
--- OUTSIDE RECORDS SUMMARY | 2025-04-05 08:57 | XMS_ITS | Patient Health Record ---
Author Organization [facility] Address [address] [place] [address] Care Team Providers Care Nursing Care Partner Name Role Phone Gilles WAGNER, [facility] Primary Care Provider Heidya Kevan Deleon [phone] Reason For Referral No Information Medications Medication [...] Problem Screening for malignant neoplasm of colon (189343255) Encounter for screening for malignant neoplasm of colon (Z12.11) Active confirmed Problem History of adenomatous polyp of colon (242023915) History of adenomatous polyp of colon (Z86.010) Active confirmed Problem Preprocedural examination (056612675021977) Preprocedural examination (Z01.818) Active confirmed Problem Rectal pain (16066969) Rectal pain (K62.89) Active confirmed Problem Proctalgia fugax (77300176) 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 Plan Of Treatment Future Test Test Name Order Date COLONOSCOPY 03/29/2014 COLONOSCOPY 08/01/2020 Insurance Providers Payer Name Payer Address Payer Phone Subscriber Number Group Number Insured Name Patient Relationship to Insured Coverage Start Date Coverage End Date 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
--- OUTSIDE RECORDS SUMMARY | 2025-04-05 08:57 | XMS_ITS | Patient Health Record ---
Author Organization [facility] Address [address] [place] [address] Care Team Providers Care Heel Coverer Name Role Phone Zachary Campoverde Primary Care Provider Unavailabl e Black, Cynthia Unavailable [phone] Allergies Allergen (clinical drug ingredient) Drug/Non Drug [...] Date Coverage End Date R [address] [address] [place] [address] [id number] [phone] Kacy Trinidad Self - patient is the insured Medical (General) History Medical History History ICD Code Back pain Knee Pain Migraines Surgical History Surgery Date(Month/Year)
== END 2025-04-05 09:13 | disposition home or self-care (01) ==
LOC: HO.HMCFM 08:42
PROVIDERS: PCP Nurse Practitioner Family; Visit Provider Nurse Practitioner Family
DX: I10 Essential (primary) hypertension (principal); E78.5 Hyperlipidemia, unspecified